=== PATIENT | male | born 1995 | race Two or more races ===

== ENCOUNTER 2017-03-14 16:01 | Outpatient (CLI) ==
[2016-07-16 14:56] VITALS: BMI 23.6
[2017-03-14 16:36] LABS: BILIRUBIN,URINE Negative (NEGATIVE); KETONES,URINE Negative (NEGATIVE); LEUKOCYTE ESTERASE ,URINE Trace (NEGATIVE); NITRITE,URINE Negative (NEGATIVE); PROTEIN,URINE Negative (NEGATIVE); URINE, BLOOD Negative (NEGATIVE)
[2017-03-14 16:44] LABS: ADD URINE MICROSCOPIC YES
[2017-03-17 10:58] LABS: HIV ANTIBODIES QUALITATIVE NONREACTIVE (Nonreactive)
== END 2017-03-14 16:02 | disposition home or self-care (01) ==
LOC: LAB 16:01
PROVIDERS: ATTEND Nurse Practitioner Family
DX: Z20.2 Contact with and (suspected) exposure to infections with a predominantly sexual mode of transmission (principal)
CPT/HCPCS: 36415; 80074; 81001; 86701; 87086; 87800